=== PATIENT | female | born 1980 | race Asian ===

== ENCOUNTER → 2016-03-15 | Outpatient (REF) | payer OTHER ==
[~2016-03-15] MED LIST: ACET50TA PO; PNVTAB4 PO; VIRE300T PO
== END ==
LOC: M LAB REF 17:28
PROVIDERS: ATTEND Advanced Practice Midwife
DX: N34.1 Nonspecific urethritis (principal)

== ENCOUNTER → 2016-03-22 | Outpatient (CLI) | payer OTHER | LOC: M SMT 10:04 | PROVIDERS: ATTEND Family Medicine | DX: Z11.3 Encounter for screening for infections with a predominantly sexual mode of transmission (principal) ==